=== PATIENT | female | born 1990 | race Caucasian/White ===

== ENCOUNTER 2022-08-22 10:22 | Emergency (ER) | payer MEDICAID ==
[2022-08-22 10:46] VITALS: BP 143/89; PULSE 58
[2022-08-22] MEDS ORDERED: Sodium Chloride 0.9% 10 ML Syringe FLUSH PRN (11:41)
[2022-08-22] MEDS ORDERED: Metoclopramide 10 MG/2 ML SDV IVPUSH ONE (11:41)
[2022-08-22] MEDS ORDERED: diphenhydrAMINE 50 MG/ML SDV IVPUSH ONE (11:41)
[2022-08-22] MEDS ORDERED: Ketorolac 30 MG/ML SDV IVPUSH ONE (11:41)
[2022-08-22] MEDS ORDERED: Sodium Chloride 0.9% 1,000 ML IV ONE (11:41)
[2022-08-22 12:52] LABS: CORONAVIRUS COVID-19 NAA NEGATIVE (NEGATIVE)
== END 2022-08-22 12:53 | disposition home or self-care (01) ==
LOC: JD.ED 10:22
DX: R51.9 Headache, unspecified (principal); R50.9 Fever, unspecified; R11.2 Nausea with vomiting, unspecified; M19.90 Unspecified osteoarthritis, unspecified site; Z72.0 Tobacco use; Z91.030 Bee allergy status; Z91.011 Allergy to milk products; Z20.822 Contact with and (suspected) exposure to COVID-19
CPT/HCPCS: 0240U; 36415; 85025; 96361; 96374; 96375; 99284; J1200; J1885; J2765; J3490; J7030

== ENCOUNTER 2022-10-23 07:30 | Emergency (ER) | payer MEDICAID ==
[2022-10-23 07:55] VITALS: PULSE 104
[2022-10-23] MEDS ORDERED: cloNIDine 0.1 MG Tab PO ONE (08:13)
[2022-10-23] MEDS ORDERED: DULoxetine 30 MG Cap PO ONE (08:15)
[2022-10-23 08:36] VITALS: BP 160/120
== END 2022-10-23 09:00 | disposition home or self-care (01) ==
LOC: JD.ED 07:30
DX: F32.A Depression, unspecified (principal); F17.210 Nicotine dependence, cigarettes, uncomplicated; Z91.030 Bee allergy status; Z91.011 Allergy to milk products
CPT/HCPCS: 99284; A9270; 99282

== ENCOUNTER 2022-12-23 15:04 | Emergency (ER) | payer MEDICAID ==
[2022-12-23 15:15] VITALS: BP 168/98; PULSE 75
[2022-12-23] MEDS ORDERED: risperiDONE 1 MG Tab PO SCH (16:29)
== END 2022-12-23 17:32 | disposition home or self-care (01) ==
LOC: JD.ED 15:04
DX: R44.0 Auditory hallucinations (principal); R44.1 Visual hallucinations; Z91.011 Allergy to milk products
CPT/HCPCS: 80306; 99284; A9270; 99283

== ENCOUNTER 2022-12-26 02:24 | Emergency (ER) | payer MEDICAID ==
[2022-12-26 07:36] VITALS: BP 153/70; PULSE 82
== END 2022-12-26 07:55 | disposition home or self-care (01) ==
LOC: JD.ED 02:24
DX: R44.0 Auditory hallucinations (principal); F17.210 Nicotine dependence, cigarettes, uncomplicated; Z91.030 Bee allergy status; Z91.011 Allergy to milk products; Z79.899 Other long term (current) drug therapy; Z86.16 Personal history of COVID-19
CPT/HCPCS: 36415; 80053; 80143; 80179; 80306; 80307; 81001; 81025; 84443; 85025; 99283; 99285

== ENCOUNTER 2025-08-07 19:03 | Emergency (ER) | payer BC, MEDICAID ==
[2025-08-07 22:10] VITALS: BP 165/75; PULSE 65
== END 2025-08-07 22:09 | disposition home or self-care (01) ==
LOC: JD.ED 19:03
DX: F31.9 Bipolar disorder, unspecified (principal); F41.8 Other specified anxiety disorders; J45.909 Unspecified asthma, uncomplicated; F17.200 Nicotine dependence, unspecified, uncomplicated; K21.9 Gastro-esophageal reflux disease without esophagitis; Z86.16 Personal history of COVID-19; Z79.899 Other long term (current) drug therapy; Z91.030 Bee allergy status; Z88.8 Allergy status to other drugs, medicaments and biological substances; Z91.0110 Allergy to milk products, unspecified
CPT/HCPCS: 99284; A9270